=== PATIENT | female | born 1980 | race Caucasian/White ===

== ENCOUNTER 2018-04-05 13:21 | Emergency (ER) | payer SELFPAY ==
--- NOTE | 2018-04-05 14:40 | CT ---
CT BRAIN WITHOUT CONTRAST: Date: 04/05/18 HISTORY: Fall, trauma to left eye, frontal headache. FINDINGS: There is soft tissue swelling and hematoma in the left frontal and periorbital region. No evidence of acute infarct, hemorrhage, midline shift, or abnormal extra-axial fluid collections are seen. The ve ntricular size is normal and the basilar cisterns are patent. The bony calvarium is intact. The visua lized paranasal sinuses and mastoid air cells are well aerated. IMPRESSION: No CT evidence of acute intracranial process. POS: [facility]
--- NOTE | 2018-04-05 14:43 | CT ---
CT FACIAL BONES WITH CORONAL AND SAGITTAL REFORMATIONS: Date: 04/05/18 HISTORY: Trauma, left eye pain, and bruising. Frontal headache. FINDINGS: There is soft tissue swelling in the left periorbital and frontal regions. No facial bone fracture is seen. No temporomandibular dislocation is seen. The paranasal sinuses are well aerated without air f luid levels. IMPRESSION: No CT evidence of facial bone fracture. POS: [facility]
--- NOTE | 2018-04-05 14:43 | CT ---
CT CERVICAL SPINE WITH CORONAL AND SAGITTAL REFORMATIONS: Date: 04/05/18 HISTORY: Fall. Neck pain. FINDINGS/IMPRESSION: No fracture, subluxation, or facet malalignment is seen. There are degenerative changes, most promine nt at C6-7 level. POS: [facility]
== END 2018-04-05 14:43 | disposition home or self-care (01) ==
LOC: NAV ERS 13:21
DX: S05.12XA Contusion of eyeball and orbital tissues, left eye, initial encounter (principal); F17.210 Nicotine dependence, cigarettes, uncomplicated; W01.0XXA Fall on same level from slipping, tripping and stumbling without subsequent striking against object, initial encounter
CPT/HCPCS: 70450; 70486; 72125

== ENCOUNTER 2020-05-01 20:58 | Emergency (ER) | payer SELFPAY ==
[2020-05-01] MEDS ORDERED: Sodium Chloride 0.9% 1,000 ML ONE (21:38)
[2020-05-01 21:41] LABS: #Basophils 0.1 thou/uL (0.0-0.2); #Eosinphils 0.2 thou/uL (0.0-0.7); #Monocytes 0.3 thou/uL (0.11-0.59); #Neutrophils 2.9 thou/uL (1.40-6.50); %Basophils 1.2 % (0.0-1.0); %Eosinophils 4.4 % (0.0-10.0); %Lymphocytes 36.4 % (21.0-51.0); %Monocytes 5.1 % (0.0-10.0); Hemoglobin 13.9 g/dL (12.0-16.0); Mean Corpuscular HGB CONC 33.1 g/dL (32.0-36.0); Mean Corpuscular Hemoglobin 32.8 pg (27.0-31.0); Mean Corpuscular Volume 98.8 fL (78.0-98.0); Mean Platelet Volume 7.5 fL (7.4-10.4); Platelet Count 206 thou/uL (130-400); RBC Distribution Width 11.6 % (11.5-14.5); Red Blood Cell (RBC) Count 4.25 mill/uL (4.20-5.40); White Blood Cell (WBC) Count 5.6 thou/uL (4.8-10.8)
[2020-05-01 21:57] LABS: ALT (SGPT) 19 U/L (8-55); AST (SGOT) 29 U/L (5-34); Albumin 4.2 g/dL (3.5-5.0); Alkaline Phosphatase 81 U/L (40-110); Anion Gap 15 mmol/L (10-20); BUN (Urea Nitrogen) 10 mg/dL (7.0-18.7); Bilirubin, Total 0.2 mg/dL (0.2-1.2); CK (CPK) 72 U/L (29-168); Calc. Creatinine Clearance 0 mL/min (70-130); Calcium 8.3 mg/dL (7.8-10.44); Carbon Dioxide 25 mmol/L (22-29); Chloride 109 mmol/L (98-107); Globulin 2.7 g/dL (2.4-3.5); Glucose 111 mg/dL (70-105); Potassium 3.3 mmol/L (3.5-5.1); Protein, Total 6.9 g/dL (6.0-8.3); Sodium 146 mmol/L (136-145)
[2020-05-01 21:58] LABS: Alcohol 310 mg/dL (Less than 10); Salicylate Less than 8.0 mg/dL (15.0-30.0)
[2020-05-01 22:06] LABS: Bilirubin Negative (Negative); Blood, Urine Negative (Negative); Clarity Clear (Clear); Glucose, Urine (Dipstick) Negative (Negative); Ketone, Urine Negative (Negative); Leukocyte Negative (Negative); Nitrite Negative (Negative); Protein, Urine (Dipstick) Negative (Neg-Trace); Urobilinogen 0.2 mg/dL (Less than 2); pH, Urine 5.5 (5.0-9.0)
[2020-05-01 22:07] LABS: Specific Gravity, Urine 1.004 (1.002-1.036)
[2020-05-01 22:11] LABS: Acetaminophen Less than 6.0 mcg/mL (10.0-30.0)
[2020-05-01 22:23] LABS: Amphetamine Not Detected (NotDetected); Barbiturates Screen Not Detected (NotDetected); Benzodiazepine Screen Not Detected (NotDetected); Cocaine Metabolite Screen Not Detected (NotDetected); Medtox Control Line Valid? VALID (VALID); Methadone Not Detected (NotDetected); Methamphetamine Not Detected (NotDetected); Opiate Screen Not Detected (NotDetected); Oxycodone Screen Not Detected (NotDetected); Phencyclidine (PCP) Not Detected (NotDetected); THC/Cannabinoid Screen Not Detected (NotDetected); Tricyclic Screen Not Detected (NotDetected)
--- NOTE | 2020-05-01 23:41 | RAD ---
PA AND LATERAL CHEST: Date: 05/01/2020 HISTORY: Cough and fatigue. FINDINGS: Heart size and mediastinum are within normal limits. The lungs appear clear of any infiltrative proce ss. No significant bony findings. IMPRESSION: No active intrathoracic disease. POS: [facility]
[2020-05-02 01:21] LABS: Acetaminophen Less than 6.0 mcg/mL (10.0-30.0)
[2020-05-03 00:15] LABS: SARS-CoV-2 PCR by NAA Not Detected (NotDetected)
== END 2020-05-02 01:40 | disposition home or self-care (01) ==
LOC: NAV ERS 20:58
DX: F10.129 Alcohol abuse with intoxication, unspecified (principal); Y90.8 Blood alcohol level of 240 mg/100 ml or more; R53.83 Other fatigue; R05 Cough; R68.83 Chills (without fever); Z20.822 Contact with and (suspected) exposure to COVID-19; F17.210 Nicotine dependence, cigarettes, uncomplicated
CPT/HCPCS: 71046; 80053; 80143; 80306; 80307; 81003; 82550; 83605; 84443; 84484; 85025; 87040; 87635; 87804; 93005; J7050; U0003; U0005

== ENCOUNTER 2022-11-15 20:28 | Emergency (ER) | payer OTHER, SELFPAY ==
[~2022-11-15 20:28] MED LIST: Iopamidol 370 76% 100 ML VIAL ONE
[2022-11-15] MEDS ORDERED: Ondansetron PF 4 MG/2 ML Vial ONE (21:20)
[2022-11-15] MEDS ORDERED: Ketorolac Tromethamine 60 MG/2 ML VIAL ONE (21:21)
[2022-11-15] MEDS ORDERED: Sodium Chloride 0.9% 1,000 ML ONE (21:21)
[2022-11-15 21:32] LABS: White Blood Cell (WBC) Count 6.5 10x3/uL (4.8-10.8)
[2022-11-15 21:33] LABS: #Basophils 0.1 thou/uL (0.0-0.2); #Eosinphils 0.1 thou/uL (0.0-0.7); #Lymphocytes 2.8 thou/uL (1.20-3.40); #Monocytes 0.4 thou/uL (0.11-0.59); #Neutrophils 3.2 thou/uL (1.40-6.50); %Basophils 1.7 % (0.0-1.0); %Lymphocytes 42.3 % (21.0-51.0); %Monocytes 5.7 % (0.0-10.0); %Neutrophils 49.3 % (42.0-75.0); Hematocrit 41.8 % (36.0-47.0); Hemoglobin 13.8 g/dL (12.0-16.0); Manual Diff?? NO; Mean Corpuscular HGB CONC 32.9 g/dL (32.0-36.0); Mean Corpuscular Hemoglobin 28.1 pg (27.0-31.0); Mean Corpuscular Volume 85.3 fl (78.0-98.0); Mean Platelet Volume 6.8 fL (7.4-10.4); Platelet Count 205 10x3/uL (130-400); RBC Distribution Width 12.3 % (11.5-14.5)
[2022-11-15 22:02] LABS: ALT (SGPT) 9 U/L (8-55); AST (SGOT) 12 U/L (5-34); Alkaline Phosphatase 61 U/L (40-110); Anion Gap 13 mmol/L (10-20); BUN (Urea Nitrogen) 12 mg/dL (7.0-18.7); Bilirubin, Total 0.5 mg/dL (0.2-1.2); Calc. Creatinine Clearance 0 mL/min (70-130); Calcium 8.9 mg/dL (7.8-10.44); Carbon Dioxide 25 mmol/L (22-29); Chloride 104 mmol/L (98-107); Estimated GFR 102; Globulin 2.3 g/dL (2.4-3.5); Glucose 83 mg/dL (70-105); Lipase 8 U/L (8-78); Potassium 3.1 mmol/L (3.5-5.1); Protein, Total 6.3 g/dL (6.0-8.3); Sodium 139 mmol/L (136-145)
[2022-11-15] MEDS ORDERED: Potassium Chloride 20 MEQ TAB ONE (22:16)
[2022-11-15 22:35] LABS: Bilirubin Negative (Negative); Blood, Urine Negative (Negative); Clarity Clear (Clear); Glucose, Urine (Dipstick) Negative (Negative); Ketone, Urine Negative (Negative); Leukocyte Negative (Negative); Nitrite Negative (Negative); Protein, Urine (Dipstick) Negative (Neg-Trace); Urobilinogen 0.2 mg/dL (Less than 2)
[2022-11-15 22:36] LABS: Bacteria/HPF Rare-Few HPF (None Seen); CAUTI Indications for Culture Pelvic or flank pain; Mucous/LPF Rare LPF (<2+); RBC/HPF 0-3 HPF (0-3)
[2022-11-15 22:37] LABS: Urine Culture Reflex No No
[2022-11-15 22:38] LABS: Amphetamine Detected (NotDetected); Barbiturates Screen Not Detected (NotDetected); Benzodiazepine Screen Not Detected (NotDetected); Cocaine Metabolite Screen Not Detected (NotDetected); Methadone Not Detected (NotDetected); Methamphetamine Detected (NotDetected); Opiate Screen Not Detected (NotDetected); Oxycodone Screen Not Detected (NotDetected); Phencyclidine (PCP) Not Detected (NotDetected); THC/Cannabinoid Screen Detected (NotDetected); Tricyclic Screen Not Detected (NotDetected)
== END 2022-11-16 00:06 | disposition home or self-care (01) ==
LOC: NAV ERS 20:28
DX: M25.50 Pain in unspecified joint (principal); K59.00 Constipation, unspecified; F15.10 Other stimulant abuse, uncomplicated; K52.0 Gastroenteritis and colitis due to radiation; R11.2 Nausea with vomiting, unspecified; F17.210 Nicotine dependence, cigarettes, uncomplicated
CPT/HCPCS: 74177; 80053; 80306; 81001; 83690; 84443; 84484; 85025; 93005; 96361; 96374; 96375; J1885; J2405; J7050; Q9967

== ENCOUNTER 2024-05-09 14:43 | Emergency (ER) | payer OTHER ==
[2024-05-09 15:33] LABS: #Basophils 0.1 thou/uL (0.0-0.2); #Lymphocytes 1.9 thou/uL (1.20-3.40); #Monocytes 0.3 thou/uL (0.11-0.59); #Neutrophils 2.4 thou/uL (1.40-6.50); %Basophils 1.1 % (0.0-1.0); %Eosinophils 0.7 % (0.0-10.0); %Lymphocytes 41.2 % (21.0-51.0); %Monocytes 7.3 % (0.0-10.0); %Neutrophils 49.8 % (42.0-75.0); Hematocrit 43.3 % (36.0-47.0); Mean Corpuscular HGB CONC 32.4 g/dL (32.0-36.0); Mean Corpuscular Hemoglobin 27.9 pg (27.0-31.0); Mean Platelet Volume 7.1 fL (7.4-10.4); Platelet Count 231 10x3/uL (130-400); RBC Distribution Width 11.1 % (11.5-14.5); Red Blood Cell (RBC) Count 5.03 mill/uL (4.20-5.40); White Blood Cell (WBC) Count 4.7 10x3/uL (4.8-10.8)
[2024-05-09] MEDS ORDERED: Lorazepam 0.5 MG TAB ONE ×2 (16:06→18:39)
[2024-05-09] MEDS ORDERED: Folic Acid 5 MG/ML MDV ONE (16:44)
[2024-05-09] MEDS ORDERED: Thiamine HCl 200 MG/2 ML VIAL ONE (16:44)
[2024-05-09] MEDS ORDERED: Multivit, Adult Inj 10 ML VIAL ONE (16:45)
[2024-05-09] MEDS ORDERED: Dextrose 5 %-0.45 % NaCl 1,000 ML ONE (16:45)
[2024-05-09 17:03] LABS: ALT (SGPT) 14 U/L (Less than 34); Albumin 4.6 g/dL (3.1-4.5); Alcohol 35.7 mg/dL (Less than 10); Alkaline Phosphatase 96 U/L (40-110); Anion Gap 16 mmol/L (10-20); BUN (Urea Nitrogen) 7 mg/dL (7.0-18.7); Bilirubin, Total 0.6 mg/dL (0.3-1.2); Calc. Creatinine Clearance 0 mL/min (70-130); Calcium 9.8 mg/dL (7.8-10.44); Carbon Dioxide 29 mmol/L (22-29); Chloride 97 mmol/L (98-107); Estimated GFR 80; Glucose 111 mg/dL (70-105); Lipase 17 U/L (8-78); Magnesium 1.4 mg/dL (1.6-2.6); Potassium 3.5 mmol/L (3.5-5.1); Protein, Total 7.6 g/dL (6.0-8.3); Sodium 138 mmol/L (136-145)
[2024-05-09 17:04] LABS: AST (SGOT) 41 U/L (11-34)
[2024-05-09 17:37] LABS: Clarity Clear (Clear)
[2024-05-09] MEDS ORDERED: Magnesium 2 GM/50 ML BAG (IN WATER) ONE (17:37)
[2024-05-09 17:38] LABS: Bilirubin Negative (Negative); Blood, Urine Small (Negative); CAUTI Indications for Culture Alt mental st,lethar; Glucose, Urine (Dipstick) Negative (Negative); Ketone, Urine Negative (Negative); Leukocyte Negative (Negative); Nitrite Negative (Negative); Protein, Urine (Dipstick) Trace mg/dL (Neg-Trace); RBC/HPF 0-3 HPF (0-3); Specific Gravity, Urine 1.015 (1.005-1.030); Urobilinogen 0.2 mg/dL (Less than 2); WBC/HPF None Seen HPF (0-3); pH, Urine 8.5 (5.0-9.0)
[2024-05-09 17:39] LABS: Amphetamine Not Detected (NotDetected); Barbiturates Screen Not Detected (NotDetected); Benzodiazepine Screen Detected (NotDetected); Cocaine Metabolite Screen Not Detected (NotDetected); Methadone Not Detected (NotDetected); Methamphetamine Not Detected (NotDetected); Opiate Screen Not Detected (NotDetected); Oxycodone Screen Not Detected (NotDetected); Phencyclidine (PCP) Not Detected (NotDetected); THC/Cannabinoid Screen Detected (NotDetected); Tricyclic Screen Not Detected (NotDetected)
[2024-05-09 17:40] LABS: Urine Culture Reflex No No
== END 2024-05-09 18:50 | disposition home or self-care (01) ==
LOC: NAV ERS 14:43
DX: F10.129 Alcohol abuse with intoxication, unspecified (principal); F17.210 Nicotine dependence, cigarettes, uncomplicated
CPT/HCPCS: 80053; 80306; 80307; 81001; 83690; 83735; 85025; 96365; 96372; J3411; J3475; J7042

== ENCOUNTER 2024-12-09 19:49 | Emergency (ER) | payer OTHER | END 2024-12-09 21:52 | disposition home or self-care (01) | LOC: NAV ERS 19:49 | DX: S06.0X0A Concussion without loss of consciousness, initial encounter (principal); F17.210 Nicotine dependence, cigarettes, uncomplicated; W22.8XXA Striking against or struck by other objects, initial encounter; Y93.02 Activity, running | CPT/HCPCS: 70450 ==

== ENCOUNTER 2025-01-13 12:27 | Emergency (ER) | payer OTHER, SELFPAY ==
[2025-01-13] MEDS ORDERED: Ondansetron PF 4 MG/2 ML Vial ONE (13:01)
[2025-01-13 13:10] LABS: #Basophils 0.1 thou/uL (0.0-0.2); #Eosinophils 0.1 thou/uL (0.0-0.7); #Lymphocytes 2.5 thou/uL (1.20-3.40); #Monocytes 0.5 thou/uL (0.11-0.59); #Neutrophils 4.9 thou/uL (1.40-6.50); %Basophils 1.5 % (0.0-1.0); %Eosinophils 0.8 % (0.0-10.0); %Lymphocytes 31.0 % (21.0-51.0); %Monocytes 5.8 % (0.0-10.0); %Neutrophils 60.9 % (42.0-75.0); Hematocrit 40.6 % (36.0-47.0); Hemoglobin 14.6 g/dL (12.0-16.0); Mean Corpuscular Hemoglobin 29.0 pg (27.0-31.0); Mean Corpuscular Volume 80.8 fl (78.0-98.0); Platelet Count 273 10x3/uL (130-400); Red Blood Cell (RBC) Count 5.02 mill/uL (4.20-5.40); White Blood Cell (WBC) Count 8.0 10x3/uL (4.8-10.8)
[2025-01-13 13:25] LABS: Bicarbonate (HCO3v) 31.9 mmol/L (22.0-28.0); CO2 Tension (PvCO2) 50.1 mmHg (42.0-51.0); Calcium, Ionized 1.18 mmol/L (1.15-1.33); Chloride 101 mmol/L (98-107); Hemoglobin - Calc 15.1 g/dL (12.0-16.0); Potassium 3.8 mmol/L (3.5-5.1); Sodium 140 mmol/L (138-145); T. Carbon Dioxide 33.4 mmol/L (22.0-28.0); vO2 Saturation-calc 34.5 % (60.0-85.0)
[2025-01-13 13:28] LABS: ALT (SGPT) 9 U/L (Less than 34); AST (SGOT) 19 U/L (11-34); Albumin 4.7 g/dL (3.1-4.5); Alkaline Phosphatase 76 U/L (40-110); Anion Gap 18 mmol/L (10-20); BUN (Urea Nitrogen) 8 mg/dL (7.0-18.7); Bilirubin, Total 0.6 mg/dL (0.3-1.2); Calc. Creatinine Clearance 0 mL/min (70-130); Calcium 9.7 mg/dL (7.8-10.44); Carbon Dioxide 27 mmol/L (22-29); Chloride 99 mmol/L (98-107); Globulin 2.7 g/dL (2.4-3.5); Glucose 119 mg/dL (70-105); Potassium 3.9 mmol/L (3.5-5.1); Sodium 140 mmol/L (136-145)
[2025-01-13 16:07] LABS: Glucose, Urine (Dipstick) Negative (Negative); Leukocyte Negative (Negative); Protein, Urine (Dipstick) Negative (Neg-Trace); Specific Gravity, Urine 1.010 (1.005-1.030)
[2025-01-13 16:12] LABS: CAUTI Indications for Culture Pelvic or flank pain; RBC/HPF 0-3 HPF (0-3); WBC/HPF None Seen HPF (0-3)
[2025-01-13 16:13] LABS: Urine Culture Reflex No No
[2025-01-13] MEDS ORDERED: HYDROcodone/Acetaminophen 5/325 mg Tablet ONE (17:02)
[2025-01-13] MEDS ORDERED: Orphenadrine Citrate 60 MG/2 ML VIAL ONE (17:03)
== END 2025-01-13 17:15 | disposition home or self-care (01) ==
LOC: NAV ERS 12:27
DX: M51.370 Other intervertebral disc degeneration, lumbosacral region with discogenic back pain only (principal); K59.00 Constipation, unspecified; F17.210 Nicotine dependence, cigarettes, uncomplicated
CPT/HCPCS: 74177; 80053; 81001; 82330; 82435; 82803; 83605; 84132; 84295; 85014; 85025; 87040; 87086; 94760; 96374; 96375; 96376; J2272; J2360; J7030; Q9967

== ENCOUNTER 2025-04-04 14:26 | Emergency (ER) | payer SELFPAY ==
[2025-04-04] MEDS ORDERED: Ibuprofen 200 MG TAB ONE (14:40)
== END 2025-04-04 15:38 ==
LOC: NAV ERS 14:26
DX: S63.502A Unspecified sprain of left wrist, initial encounter (principal); S50.02XA Contusion of left elbow, initial encounter; W22.8XXA Striking against or struck by other objects, initial encounter; Y99.0 Civilian activity done for income or pay
CPT/HCPCS: 99283